=== PATIENT | male | born 1975 | race Caucasian/White ===

== ENCOUNTER 2017-01-14 17:36 | Observation (INO) | payer OTHER ==
--- NOTE | 2017-01-14 17:55 | EDPHY ---
H & P Time Seen by Provider: 01/14/17 17:48 HPI/ROS: CHIEF COMPLAINT: Left facial swelling and pain. HISTORY OF PRESENT ILLNESS: The patient is a 41 year old male with hyperglycemia presenting with left sided jaw pain and swelling. The patient had a dental implant placed yesterday at 4pm. Around 9pm, 5 hours later, he developed pain and swelling to the left side of his mouth. He went to his dentist this morning who tried to drain some of the infection from his left lower jaw. The patient was started on Amoxicillin. The patient continues to have rapid onset of increasing pain and swelling to the left side of his mouth. No fever or chills. REVIEW OF SYSTEMS: A comprehensive 10 point review of systems is otherwise negative aside from elements mentioned in the history of present illness. Past Medical/Surgical History: Hypertension Social History: . Smoking Status: Never smoked Physical Exam: General Appearance: Alert, pleasant, non-toxic appearing Eyes: Pupils equal and round, no conjunctival pallor or injection ENT, Mouth: Moderate swelling adjacent to the left side of mandible. No sublingual swelling or tenderness. Neck: left submandibular swelling and tenderness; no submental tenderness or swelling Chest: CTA CV: RRR Abd: soft, NT Neurological: A&O, nonfocal, normal gait Skin: Warm and dry, no rash Extremities: Nontender, no pedal edema Psychiatric: Mood and affect normal Constitutional: Initial Vital Signs Temperature (C) 37.3 C 01/14/17 17:44 Heart Rate 103 H 01/14/17 17:44 Respiratory Rate 24 H 01/14/17 17:44 Blood Pressure 163/116 H 01/14/17 17:44 O2 Sat (%) 94 01/14/17 17:44 O2 Delivery Mode Room Air Allergies/Adverse Reactions: No Known Allergies Allergy (Unverified 01/14/17 17:43) Home Medications: Medication Instructions Recorded Acetaminophen [Tylenol 325mg (*)] 325 mg PO Q4HRS PRN #0 tab 01/15/17 Amoxicillin/Clavulanate Pot 875 mg PO BID #15 tab 01/15/17 [Augmentin 875 MG TAB (*)] Ibuprofen 200 - 600 mg PO Q6 PRN #40 tablet 01/15/17 metFORMIN HCL [Metformin HCl] 500 mg PO BIDAC #60 tablet 01/15/17 oxyCODONE IR [Oxycodone Ir (*)] 2.5 - 10 mg PO Q4 PRN #40 tab 01/15/17 Medical Decision Making - Diagnostics Imaging: CT per Dr. Rangel: facial cellulitis and phlegmon present. No abscess ED Course/Re-evaluation: The patient is a 41 year old male s/p dental implant, presenting with left lower jaw pain and swelling that has been worsening over the past 24 hours. IV was established, patient was started on IV Clindamycin. 7:50 p.m.: CT of the maxillofacial was obtained. I viewed the images myself on the PACS system. See the full radiology report in the imaging section. I discussed findings with the patient. Given untreated new onset DM and rapid progression of facial cellulitis, will admit for observation. The hospitalist service was consulted. Differential Diagnosis: Differential diagnosis includes though not limited to abscess, erysipelas, acute parotitis, philip's angina - Data Points Laboratory Results: Laboratory Results 01/14/17 18:15 01/14/17 18:15 Medications Given: Discontinued Medications Clindamycin Phosphate/Dextrose (Cleocin 600 Mg (Premix)) 50 mls @ 100 mls/hr IV EDNOW ONE PRN Reason: Protocol Stop: 01/14/17 18:27 Last Admin: 01/14/17 18:19 Dose: 50 mls Sodium Chloride (Ns) 1,000 mls @ 100 mls/hr IV CONT PARMJIT Stop: 07/13/17 21:44 Last Admin: 01/15/17 08:37 Dose: 1,000 mls Ampicillin Sodium/Sulbactam (Sodium 3 gm/ Sodium Chloride) 100 mls @ 200 mls/ hr IV Q6HRS PARMJIT PRN Reason: Protocol Stop: 02/14/17 00:00 Last Admin: 01/15/17 05:40 Dose: 100 mls Insulin Human Lispro (Humalog Lispro) 0 unit SC TIDMEAL PARMJIT PRN Reason: Protocol Stop: 07/14/17 07:59 Last Admin: 01/15/17 08:37 Dose: Not Given Oxycodone/Acetaminophen (Percocet 5/325) 1 tab PO Q4HRS PRN PRN Reason: Pain, Severe Able to Take PO Stop: 01/24/17 21:35 Last Admin: 01/14/17 22:33 Dose: 1 tab Departure - Departure Disposition: [facility] Inpatient Acute Clinical Impression: Facial cellulitis Condition: Good Report Scribed for: Caprice Lam Report Scribed by: Neetu Phillips Date of Report: 01/14/17 Time of Report: 17:55 Physician Review and Approval Statement: 01/14/17 17:55 Portions of this note were transcribed by a registered medical assistant. I personally performed the history, physical exam, and medical decision-making; and confirmed the accuracy of the information in the transcribed note.
[2017-01-14] MEDS ORDERED: CLINDAMYCIN 600 MG/DEXTROSE 50 ML IV ONE (17:58)
[2017-01-14] MEDS ORDERED: IOPAMIDOL (ISOVUE-300) 100 ML BTL IV ONE (18:22)
[2017-01-14 18:45] LABS: % IMMATURE GRANULYOCYTES 0.3 % (0.0-1.1); ABSOLUTE IMMATURE GRANULOCYTES 0.03 10^3/uL (0.00-0.10); ADD DIFF? NO; ADD MORPH? NO; ADD SCAN? NO; ATYPICAL LYMPHOCYTE FLAG 0 (0-99); FRAGMENT RBC FLAG 0 (0-99); HEMATOCRIT 48.2 % (40.0-51.0); HEMOGLOBIN 16.3 g/dL (13.7-17.5); LEFT SHIFT FLG 0 (0-99); LIPEMIA HEMOLYSIS FLAG 90 (0-99); MEAN CELL HEMOGLOBIN 27.4 pg (27.9-34.1); MEAN CELL HEMOGLOBIN CONCENTR. 33.8 g/dL (32.4-36.7); MEAN CELL VOLUME 81.1 fL (81.5-99.8); PLATELET CLUMPS FLAG 10 (0-99); PLATELET COUNT 273 10^3/uL (150-400); RED BLOOD CELL COUNT 5.94 10^6/uL (4.40-6.38); RED CELL DISTRIBUTION WIDTH 13.2 % (11.5-15.2)
[2017-01-14 19:04] LABS: ANION GAP 12 mEq/L (8-16); CALCIUM 9.4 mg/dL (8.5-10.4); CARBON DIOXIDE 24 mEq/l (22-31); CHLORIDE 101 mEq/L (97-110); GLOMERULAR FILTRATION RATE > 60; GLUCOSE 183 mg/dL (70-100); POTASSIUM 4.6 mEq/L (3.5-5.2); SODIUM 137 mEq/L (134-144)
[2017-01-14] MEDS ORDERED: ONDANSETRON 4 MG/2 ML VIAL IVP PRN (21:22)
[2017-01-14] MEDS ORDERED: ACETAMINOPHEN 325 MG TAB PO PRN (21:22)
[2017-01-14] MEDS ORDERED: ONDANSETRON DISINTEGRATING 4 MG TAB PO PRN (21:22)
[2017-01-14] MEDS ORDERED: OXYCODONE/APAP 5/325 TAB PO PRN (21:36)
[2017-01-14] MEDS ORDERED: D50W 25 GM/50 ML SYR IVP PRN (21:38)
[2017-01-14] MEDS: NS 1,000 ML IV SCH (22:28)
--- NOTE | 2017-01-14 22:54 | GHP ---
[f rep st] HISTORY AND PHYSICAL DATE OF ADMISSION: 01/14/2017 CHIEF COMPLAINT: Facial cellulitis/pre-abscess HISTORY OF PRESENT ILLNESS: a 41-year-old male with a recent diagnosis of diabetes, presenting with left-sided jaw pain and swelling. He has had dental implants implanted years ago, but 1 of them became loose over the last couple days. Yesterday, he went to his dentist because it came out completely and she screwed it back in. He says the pain got worse after going home and the pain medications wore off. At that time, he had increased swelling in that region. He called his dentist at that time, but no intervention was done. He returned today and she drained some of the fluid, started on Amoxicillin, and advised to go to ER. He reports mild chills and sweats. No nausea, vomiting, or diarrhea. Pain was an 8/10. Alanson like nerve pain. REVIEW OF SYSTEMS: I completed a 10-point review of systems. Negative, except as noted in the HPI. PAST MEDICAL HISTORY: Recently diagnosed diabetes (A1c 7.5 here). Fatty hepatic steatosis being worked up by his primary care physician. He has an ultrasound scheduled next week. FAMILY HISTORY: Mother and grandmother with diabetes. PAST SURGICAL HISTORY: None. SOCIAL HISTORY: Lives in [place] with his who is a [employer] highway engineer. No illicit drugs or tobacco. MEDICATIONS: Amoxicillin started today. ALLERGIES: No known drug allergies. PHYSICAL EXAM: VITAL SIGNS: Temperature 37, blood pressure 148/92, heart rate 80s, respiration 18, 97% on room air. GENERAL: In no general no acute distress. Mildly diaphoretic. HEENT: PERRLA, EOMI. Significant left facial swelling with induration and tenderness. No overt erythema on the cheek. There is no drainage inside the mouth or abscess. CV: Regular rate and rhythm. No murmurs, gallops, rubs. LUNGS: Clear to auscultation bilaterally. ABDOMEN: Soft, nontender, nondistended. Positive bowel sounds. : No suprapubic tenderness. MUSCULOSKELETAL: 5/5 upper and lower extremity strength. NEURO: Cranial nerves II through XII intact. PSYCH: Alert and oriented x3 next. LABS: WBC 9, hemoglobin 16, hematocrit 48, platelets 273. Sodium 140, potassium 4.1, chloride 100, BUN 13, creatinine 1, glucose 184. A1c 7.5. IMAGING: Neck/face CT: No osteomyelitis or jazlyn abscess identified. There may be a pre-abscess developing lateral to the left mandible, deep to the platysma muscle. ASSESSMENT AND PLAN: 1. Facial cellulitis: acute problem secondary to a dental implant. There was no evidence of overt abscess to be drained. Will admit patient to observation and start IV Unasyn and pain medications. 2. Acute pain secondary to abscess. Percocet p.r.n. 3. Recently diagnosed diabetes. Sliding scale insulin while here. Would consider starting metformin at discharge. Patient is to follow up with his PCP. 4. Concern for fatty liver. The patient has been evaluated by his PCP. Liver ultrasound next week. 5. Diet: Soft foods. 6. Deep venous thrombosis prophylaxis. Ambulatory. DISPOSITION: Patient warrants observation admission given acute facial cellulitis warranting IV antibiotics. /[id number]/MODL MTDD
[2017-01-15] MEDS: AMPICILLIN/SULBACTAM 3 GM in NS 100 ML IV SCH ×2 (00:02→05:40)
[2017-01-15 05:48] VITALS: RESP 16
[2017-01-15] MEDS ORDERED: INSULIN LISPRO 100 UNIT/ML SC SCH (08:00)
[2017-01-15] MEDS: NS 1,000 ML IV SCH (08:37)
--- NOTE | 2017-01-15 10:13 | PDDCSUM ---
Discharge Summary Discharge Summary: DISCHARGE SUMMARY FOLLOW-UP ITEMS: Outpatient oral surgery follow-up, up titrate metformin as tolerates DATE OF ADMISSION: 01/14/2017 DATE OF DISCHARGE: 01/15/2017 DISCHARGE DIAGNOSES: 1. Acute facial cellulitis 2. Diabetes mellitus type 2 diagnosis CONSULTATIONS: None PROCEDURES / IMAGING: Facial CT demonstrating no evidence of osteomyelitis or abscess, overlying cellulitis above left mandible CHIEF COMPLAINT: Acute face pain and swelling SUBJECTIVE: Patient is feeling well at time of discharge, pain has improved with antibiotics PHYSICAL EXAM ON DISCHARGE: Systolic blood pressure 120, heart rate 60, afebrile overnight, left-sided facial swelling with tenderness, no fluctuance, no visible dental caries on left mandible, no mucosal ulcers on left, heart rate is regular LABS ON DISCHARGE: White blood cell count 9900, hemoglobin 16.3, blood sugar 130 HOSPITAL COURSE BY PROBLEM: 1. Acute facial cellulitis. Patient presented with acute facial pain and swelling secondary to cellulitis overlying the left mandible, possibly secondary to left dental carol. Received pain medication as well as IV Unasyn. His pain significantly improved. Facial CT demonstrated no underlying abscess or osteomyelitis. Patient will be continued on 7 days Augmentin therapy and will follow up with an oral surgeon early next week. We will also prescribe him as needed oral oxycodone, and I have advised him that it is safe to take low-dose Tylenol as well as ibuprofen. 2. New diagnosis diabetes mellitus type 2. Patient with recent hemoglobin A1c 7.5%, has not seen his PCP for this issue, received diabetic dietary counseling here at the hospital. Advised the patient to take metformin 500 mg twice daily with meals and this can be up titrated in the outpatient setting with his primary care provider. DISCHARGE MEDICATIONS: Please see official discharge medication reconciliation sheet in chart , metformin 500 mg twice daily, Augmentin 875 twice daily x1 week, as needed oxycodone immediate release, as needed Tylenol and ibuprofen. DISCHARGE INSTRUCTIONS: Please follow up with primary care provider next week as well as your oral surgeon.
[2017-01-15 12:32] VITALS: BP 123/87; PULSE 80; TEMP 99; O2SAT 94
== END 2017-01-15 13:43 | disposition home or self-care (01) ==
LOC: F1N 21:19
PROVIDERS: ADMIT Internal Medicine; ATTEND Internal Medicine
DX: L03.211 Cellulitis of face (principal); E11.9 Type 2 diabetes mellitus without complications; T85.79XA Infection and inflammatory reaction due to other internal prosthetic devices, implants and grafts, initial encounter; R68.84 Jaw pain; I10 Essential (primary) hypertension; K76.0 Fatty (change of) liver, not elsewhere classified
CPT/HCPCS: 70487; 96365; 99285; G0378; 82947-QW; J0295; Q9967

== ENCOUNTER → 2017-01-20 | Outpatient (CLI) | payer OTHER | LOC: BMCIMAGING 07:57 | PROVIDERS: ATTEND Internal Medicine | DX: K76.0 Fatty (change of) liver, not elsewhere classified (principal) ==

== ENCOUNTER → 2017-02-24 | Outpatient (CLI) | payer OTHER | LOC: FIMAGING 11:50 | PROVIDERS: ATTEND Internal Medicine | DX: R07.9 Chest pain, unspecified (principal); R06.00 Dyspnea, unspecified ==

== ENCOUNTER → 2017-06-08 | Outpatient (CLI) | payer OTHER ==
[~2017-06-08] MED LIST: GADOBUTROL 10 ML VIAL IVP ONE
== END ==
LOC: FIMAGING 12:10
PROVIDERS: ATTEND Psychiatry & Neurology Neurology
DX: R47.9 Unspecified speech disturbances (principal); I65.21 Occlusion and stenosis of right carotid artery
CPT/HCPCS: A9585

== ENCOUNTER → 2017-06-19 | Outpatient (CLI) | payer OTHER ==
[~2017-06-19] MED LIST changes: -GADOBUTROL 10 ML VIAL IVP ONE; +IOPAMIDOL (ISOVUE 370) 100 ML BTL IV ONE
== END ==
LOC: FIMAGING 12:01
PROVIDERS: ATTEND Psychiatry & Neurology Neurology
DX: R20.2 Paresthesia of skin (principal); R41.9 Unspecified symptoms and signs involving cognitive functions and awareness; R47.9 Unspecified speech disturbances
CPT/HCPCS: Q9967